=== PATIENT | female | born 1995 | race Caucasian/White ===

== ENCOUNTER → 2024-07-07 | Outpatient (CLI) | payer OTHER, SELFPAY ==
--- NOTE | 2024-07-07 13:52 | XR_ITS ---
Examination: Lumbar spine, 5 views Technique: Lumbar spine AP, lateral, coned lateral lower lumbar spine, bilateral obliques 5 views Exam date and time: July 07, 2024 1355 hours INDICATIONS: Patient fell 5 days ago with injury to lower back, lower back pain. FINDINGS: Satisfactory alignment lumbar vertebral bodies No lumbar fracture No significant lumbar disc narrowing No spondylolisthesis IMPRESSION: No lumbar fracture
== END | disposition home or self-care (01) ==
LOC: CDIM 13:28
PROVIDERS: PCP Family Medicine; Referring Provider Physician Assistant; Visit Provider Physician Assistant
DX: S39.012A Strain of muscle, fascia and tendon of lower back, initial encounter (principal); W19.XXXA Unspecified fall, initial encounter
CPT/HCPCS: 72110

== ENCOUNTER 2024-11-18 08:26 | Emergency (ER) | payer MEDICAID, SELFPAY ==
[2024-11-18 08:26] VITALS: BMI 25.2
[2024-11-18 08:45] VITALS: BP 104/67; PULSE 62; RESP 16; TEMP 36.6; O2SAT 99
--- NOTE | 2024-11-18 08:51 | XR_ITS ---
Examination: Wrist, left 3 views Technique: Wrist AP, oblique, lateral 3 views Date and time of exam: November 18, 2024 0905 hrs. Indications: Patient fell 2 months ago with injury to the wrist, wrist pain. Findings: No acute fracture No dislocation Impression: No acute fracture
--- NOTE | 2024-11-18 08:51 | PD.EDRME ---
Rapid Medical Screening Exam RME Arrival date/time: 11/18/24 08:26 29-year-old female with medical history significant for hysterectomy as well as cholecystectomy presents stating that she is currently on antibiotics for UTI reports generalized fatigue reports an episode of vomiting today and she reports there was blood streaks in her vomit. Chief Complaint: Nausea/Vomiting/Diarrhea Time Seen by Provider: 11/18/24 08:43 Vital signs: Vital Signs Temperature 97.8 F 11/18/24 08:45 Pulse Rate 62 11/18/24 08:45 Respiratory Rate 16 11/18/24 08:45 Blood Pressure 104/67 11/18/24 08:45 Pulse Oximetry (%) 99 11/18/24 08:45 Oxygen Delivery Method Room Air 11/18/24 08:45
[2024-11-18 09:09] LABS: Collection Type, Urine Clean Catch
[2024-11-18 09:20] VITALS: BP 101/61; PULSE 61; RESP 18; TEMP 36.7; O2SAT 97
[2024-11-18 09:21] LABS: Bacteria,Urine Rare; Bilirubin,Urine Negative (Negative); Blood,Urine Negative (Negative); Color,Urine Yellow (Lt Yel-Yel); Culture Indicated,Urine Not Indicated; Glucose, Urine Negative (Negative); Ketones,Urine Negative (Negative); Leukocyte Esterase,Urine Negative (Negative); Nitrite,Urine Negative (Negative); PH,Urine 6.5 (5.0-7.0); Protein,Urine Trace (Neg - Trace); RBC,Urine 1 /hpf (0-3); Specific Gravity,Urine 1.025 (1.001-1.035); Squamous Epithelial Cell,Urine 11 /hpf (0-5); Urobilinogen,Urine Negative mg/dL (0.0-1.0); WBC,Urine 3 /hpf (0-5)
[2024-11-18 09:22] LABS: Clarity,Urine Hazy (Clear/Hazy)
--- NOTE | 2024-11-18 09:36 | PD.EDADULT ---
ED General RME/HPI General Chief complaint: Nausea/Vomiting/Diarrhea Stated complaint: VOMITING WITH BLOOD AFTER TAKING CIPRO Time Seen by Provider: 11/18/24 08:43 Arrival date/time: 11/18/24 08:26 RME / HPI RME / HPI narrative: 11/18/24 08:26 29-year-old female with medical history significant for hysterectomy as well as cholecystectomy presents stating that she is currently on antibiotics for UTI reports generalized fatigue reports an episode of vomiting today and she reports there was blood streaks in her vomit. DR. BARRETO MAIN ED EVALUATION: 29 year old female presents to the Emergency Department with complaints of a headache, nausea, and x3 episodes of vomiting with streaks of blood this morning. She states she does not have abdominal pain but is is tender on palpation. Associated symptoms include fatigue. Denies any diarrhea or constipation. No cough, fevers, or chills. She recently was diagnosed with an UTI for dysuria, has 2 more days of cipro. Related Data Previous Rx's ?Medication ?Instructions ?Recorded hydrocodone 5 mg-acetaminophen 325 1 tab PO Q6H PRN pain #20 tabs 07/16/ mg tablet ibuprofen 600 mg tablet 600 mg PO Q6H #30 tabs 05/11/24 Allergies Allergy/AdvReac Type Severity Reaction Status Date / Time No Known Allergies Allergy Verified 11/18/24 08:28 Review of Systems Review of Systems Systems Reviewed: All systems reviewed, normal except as documented Past Medical History Past Medical History NEUROLOGIC: Positive Migraine GASTROINTESTINAL: Positive Gall Bladder Disease and Hemorrhoids REPRODUCTIVE: Positive Previous Pregnancies MUSCULOSKELETAL: Positive Musculoskeletal Disorders ENT: Positive Ear Infection OTHER HISTORY: Positive Hospitalization and Chicken Pox Family History FAMILY HISTORY: Positive Family Cardiac Disorders and Family Surgery Surgical History SURGICAL: Positive Hysterectomy, Tubal Ligation and Section Social History SMOKING STATUS: Never smoker SECOND HAND EXPOSURE: Yes SUBSTANCE USE: does not use ALCOHOL: Never ED Exam Narrative Physical exam: GENERAL APPEARANCE: alert and oriented x 4, well-developed, well-nourished, no acute distress VITALS: All vitals were reviewed and the pulse ox is 97% on room air, which is normal according to my interpretation. HEENT: Normocephalic, atraumatic; pupils equal, round, reactive to light; EOMI; mucous membranes pink, moist; oropharynx clear NECK: Supple LUNGS: CTABL; no wheezes, no rales, no rhonchi HEART: Regular rate, regular rhythm; normal S1, S2; no murmurs ABDOMEN: non distended; normal BS; tender to palpation of the right lower quadrant area, no rebound; no masses, no organomegaly, no hernia BACK: no CVA tenderness EXTREMITIES: atraumatic; no edema NEUROLOGIC: awake; alert and oriented x4; cranial nerves II-XII grossly intact; no focal sensory or motor deficits PSYCHIATRIC: appropriate mood and affect SKIN: warm, dry, normal color; no rashes Course Quality Measures none Orders Category Date Time Status CT Screening NOW Care 11/18/24 10:[address] abdomen pelvis w con Stat Exams 11/18/24 10:07 Completed XR wrist comp LT min 3V Stat Exams 11/18/24 08:51 Completed CBC Stat Lab 11/18/24 09:30 Completed Comprehensive Metabolic Panel Stat Lab 11/18/24 09:30 Completed Lipase Stat Lab 11/18/24 09:30 Completed UA, C/S IF [Urinalysis, C/S if Indicated] Stat Lab 11/18/24 09:01 Completed Ondansetron Inj [Zofran Inj] Med 11/18/24 12:42 Discontinued 4 mg IV X1 ONE Vital Signs Vital signs: Vital Signs Temperature 97.8 F 11/18/24 08:45 Pulse Rate 62 11/18/24 08:45 Respiratory Rate 16 11/18/24 08:45 Blood Pressure 104/67 11/18/24 08:45 Pulse Oximetry (%) 99 11/18/24 08:45 Oxygen Delivery Method Room Air 11/18/24 08:45 MDM Patient data External records reviewed:: [facility] previous records (Reviewed last ED visit dated 05/11/24, discharged with the following: Pelvic pain) Clinical information provided by:: patient Social determinants that could affect healthcare access:: none Patient has the following chronic illnesses:: PAST MEDICAL HISTORY: Asthma, hemorrhoids, cervical stenosis, pyelonephritis, and sinusitis. PAST SURGICAL HISTORY: Subtotal abdominal hysterectomy in August 2021, delivery in 2018, cholecystectomy and laparoscopic bilateral tubal ligation in 2020, hysteroscopy in November 2020 and April 2021. How is presenting disease/condition affected by chronic disease/condition?: exacerbated by Evaluation data The following diagnostics were reviewed and interpreted by me:: lab results and radiology exam(s) Lab and/or radiology exams considered but not ordered:: none Interpretation Summary: Procedure(s): XR wrist comp LT min 3V Accession Number(s): [id number] cc: Wilton Haines; Jose (MARCUS)Aroldo NP; Rolando Bustos MD~ Examination: Wrist, left 3 views Technique: Wrist AP, oblique, lateral 3 views Date and time of exam: November 18, 2024 0905 hrs. Indications: Patient fell 2 months ago with injury to the wrist, wrist pain. Findings: No acute fracture No dislocation Impression: No acute fracture Dictated By: Rolando Bustos MD Procedure(s): CT abdomen pelvis w con Accession Number(s): [id number] cc: Wilton Haines; Rolando Bustos MD; Ilda Barreto MD~ Examination: CT abdomen with intravenous contrast CT pelvis with intravenous contrast 2-D coronal reconstructions 2-D sagittal reconstructions Date and time of exam:November 18, 2024 1133 hrs. Comparison September 22, 2023 Indications: Right lower abdominal pain and vomiting blood today. CTDI: vol (mGy) 7.27 DLP: (mGycm) 116 Technique: Multiple axial sections of the abdomen and pelvis have been obtained. 64 slice high-resolution scanner used. 3 mm axial sections have been obtained, post intravenous injection 60 cc [id number] 2-D sagittal, coronal reconstructions obtained. Low dose protocols were performed. One or more of the following dose reduction techniques were used; automated exposure control, adjustment of the mA and/or KV according to patient size, use of iterative reconstruction technique. Findings: Diffuse thickening of the gastric mucosa No focal liver or splenic lesions Absent gallbladder No pancreatic or adrenal mass No renal or ureteral calculi, no hydronephrosis Aorta normal size Normal appendix No bowel obstruction Colonic diverticulosis, no diverticulitis Retroverted uterus Bladder intact Suspicious for 18 mm posterior right pelvic cyst Impression: Gastritis pattern No renal or ureteral calculi, no hydronephrosis No CT findings of appendicitis bowel obstruction or diverticulitis Recommend pelvic sonography to exclude small right pelvic cyst Dictated By: Rolando Bustos MD Medications Medications considered but not ordered:: none Medication administrations:: Medication Administration History Discontinued Medications Ondansetron HCl (Ondansetron Inj 2 Mg/Ml Inj 2 Ml) 4 mg IV X1 ONE; Protocol Stop: 11/18/24 12:43 Last Admin: 11/18/24 13:37 Dose: Not Given Documented By: DINESH Non-Admin Reason: Cancelled by Provider see above if any Consultations Consultation(s) initiated? (list below): No Diagnosis Differential Diagnosis ED Complaint MDM: UTI, sepsis, dehydration Most likely diagnosis given after review of the tests above:: Vomiting Abdominal pain Admission Indicated Admission indicated?: not indicated Explain why admission is indicated or not indicated:: Patient has no emergent abnormalities on his studies and can be managed on an outpatient basis. Admission Request Was there a request for admission?: No Disposition Plan Disposition Plan: Discharge Discharge Attestation Discharge Attestation: The patient and all family members were given an opportunity to ask questions and understood the discharge instructions. Discharge instructions specifically effects, indications for sooner follow up or return to the emergency department, and the expected course of current diagnosis. Patient condition: Stable Medical Decision Making MDM Narrative MDM Narrative: I, Georgiana Benitez, jenny scribing for and in the presence of Dr. Barreto. Differential Diagnosis Differential Diagnosis: UTI, sepsis, dehydration Lab Data 11/18/24 09:30 11/18/24 09:30 Labs: Lab Results 11/18/24 11/18/24 Range/Units 09:01 09:30 WBC 9.9 (3.6-11.0) Thou/mm3 RBC 4.31 (4.00-5.20) Miln/mm3 Hgb 12.3 (12.0-16.0) g/dL Hct 38.5 (36.0-46.0) % MCV 89 (80-100) fL MCH 28.5 (25.0-35.0) pg MCHC 31.9 (31.0-37.0) g/dl RDW Std Deviation 41.6 (36.4-46.3) fL Plt Count 250 (140-440) Thou/mm3 Neut % (Auto) 78 (37-80) % Lymph % (Auto) 15 (10-50) % [place] % (Auto) 5 (0-12) % Eos % (Auto) 1 (0-10) % Baso % (Auto) 1 (0-2.5) % Neut # (Auto) 7.7 (1.8-7.7) Thou/mm3 Lymph # (Auto) 1.5 (1.0-4.8) Thou/mm3 [place] # (Auto) 0.5 (0.0-0.8) Thou/mm3 Eos # (Auto) 0.1 (0.0-0.5) Thou/mm3 Baso # (Auto) 0.1 (0.0-0.2) Thou/mm3 Immature Gran # (Auto) 0.02 H (0.00-0.00) Thou/mm3 Absolute Nucleated RBC 0.00 (0.00-0.00) Thou/mm3 Immature Gran % 0 (0-0) % Nucleated RBC % 0 (0) /100 WBC Sodium 144 (136-145) mMol/L Potassium 3.9 (3.4-5.1) mMol/L Chloride 109 H (98-107) mMol/L Carbon Dioxide 29.2 (20.0-31.0) mMol/L Anion Gap 6 L (7-16) BUN 11 (9-23) mg/dL Creatinine 0.8 (0.6-1.3) mg/dL Estim Creat Clear Calc 98.0 (>60) mL/min eGFR > 60 (60 - ) See Note BUN/Creatinine Ratio 14 (12-20) Ratio Glucose 92 (74-106) mg/dL Calculated Osmolality 286 (275-295) Calcium 9.1 (8.3-10.6) mg/dL Corrected Calcium 9.1 (8.5-10.1) mg/dL Total Bilirubin 0.6 (0.3-1.2) mg/dL AST 14 (0-34) U/L ALT 9 L (10-49) U/L Alkaline Phosphatase 49 (46-116) U/L Total Protein 6.7 (5.7-8.2) gm/dL Albumin 4.2 (3.5-5.0) gm/dL Globulin 2.5 (2.3-3.5) gm/dL Albumin/Globulin Ratio 1.7 (1.2-2.2) Lipase 24 (12-53) U/L Ur Collection Type Clean Catch Urine Color Yellow (Lt Yel-Yel) Urine Clarity Hazy (Clear/Hazy) Urine pH 6.5 (5.0-7.0) Ur Specific [place] 1.025 (1.001-1.035) Urine Protein Trace (Neg - Trace) Urine Glucose (UA) Negative (Negative) Urine Ketones Negative (Negative) Urine Blood Negative (Negative) Urine Nitrite Negative (Negative) Urine Bilirubin Negative (Negative) Urine Urobilinogen (Auto) Negative (0.0-1.0) mg/dL Ur Leukocyte Esterase Negative (Negative) Urine RBC 1 (0-3) /hpf Urine WBC 3 (0-5) /hpf Ur Squamous Epith Cells 11 H (0-5) /hpf Urine Bacteria Rare (None) Ur Culture Indicated? Not Indicated Discharge Plan Plan Patient Disposition: HOME (Self Care) Prescriptions/Referrals Prescriptions/Med Rec: No Action hydrocodone-acetaminophen 5-325 mg tablet 1 tab PO Q6H MDD 4 PRN (Reason: pain) Qty: 20 0RF ibuprofen 600 mg tablet 600 mg PO Q6H Qty: 30 0RF Referrals: Wilton Haines FNP [Primary Care Provider] - In 1 week Problem List Clinical Impression: Vomiting, Abdominal pain Patient/Caregiver Discharge Instructions Education Materials: ED Abdominal Pain Unkn Cause Fem Print Language: Syriac Stand Alone Forms: Shana Award Info., Patient Portal Info Letter
[2024-11-18 10:00] LABS: Basophils # (Auto) 0.1 Thou/mm3 (0.0-0.2); Basophils % (Auto) 1 % (0-2.5); Eosinophils # (Auto) 0.1 Thou/mm3 (0.0-0.5); Eosinophils % (Auto) 1 % (0-10); Hematocrit 38.5 % (36.0-46.0); Hemoglobin 12.3 g/dL (12.0-16.0); Immature Granulocytes % (Auto) 0 % (0-0); Immature Granulocytes Auto 0.02 Thou/mm3 (0.00-0.00); Lymphocytes # (Auto) 1.5 Thou/mm3 (1.0-4.8); Lymphocytes % (Auto) 15 % (10-50); Mean Corpuscular HGB Conc 31.9 g/dl (31.0-37.0); Mean Corpuscular Hemoglobin 28.5 pg (25.0-35.0); Mean Corpuscular Volume 89 fL (80-100); Monocytes # (Auto) 0.5 Thou/mm3 (0.0-0.8); Monocytes % (Auto) 5 % (0-12); Neutrophils # (Auto) 7.7 Thou/mm3 (1.8-7.7); Neutrophils % (Auto) 78 % (37-80); Nucleated Red Blood Cell % 0 /100 WBC (0); Platelet Count 250 Thou/mm3 (140-440); RDW Standard Deviation 41.6 fL (36.4-46.3); Red Blood Count 4.31 Miln/mm3 (4.00-5.20); White Blood Count 9.9 Thou/mm3 (3.6-11.0)
--- NOTE | 2024-11-18 10:07 | XR_ITS ---
Examination: CT abdomen with intravenous contrast CT pelvis with intravenous contrast 2-D coronal reconstructions 2-D sagittal reconstructions Date and time of exam:November 18, 2024 1133 hrs. Comparison September 22, 2023 Indications: Right lower abdominal pain and vomiting blood today. CTDI: vol (mGy) 7.27 DLP: (mGycm) 116 Technique: Multiple axial sections of the abdomen and pelvis have been obtained. 64 slice high-resolution scanner used. 3 mm axial sections have been obtained, post intravenous injection 60 cc [id number] 2-D sagittal, coronal reconstructions obtained. Low dose protocols were performed. One or more of the following dose reduction techniques were used; automated exposure control, adjustment of the mA and/or KV according to patient size, use of iterative reconstruction technique. Findings: Diffuse thickening of the gastric mucosa No focal liver or splenic lesions Absent gallbladder No pancreatic or adrenal mass No renal or ureteral calculi, no hydronephrosis Aorta normal size Normal appendix No bowel obstruction Colonic diverticulosis, no diverticulitis Retroverted uterus Bladder intact Suspicious for 18 mm posterior right pelvic cyst Impression: Gastritis pattern No renal or ureteral calculi, no hydronephrosis No CT findings of appendicitis bowel obstruction or diverticulitis Recommend pelvic sonography to exclude small right pelvic cyst
[2024-11-18 10:19] LABS: Alanine Aminotransferase 9 U/L (10-49); Albumin, Serum 4.2 gm/dL (3.5-5.0); Albumin/Globulin Ratio 1.7 (1.2-2.2); Alkaline Phosphatase 49 U/L (46-116); Anion Gap 6 (7-16); Aspartate Amino Transferase 14 U/L (0-34); BUN/Creatinine Ratio 14 Ratio (12-20); Bilirubin,Total 0.6 mg/dL (0.3-1.2); Blood Urea Nitrogen 11 mg/dL (9-23); Calcium 9.1 mg/dL (8.3-10.6); Calcium (Corrected) 9.1 mg/dL (8.5-10.1); Carbon Dioxide 29.2 mMol/L (20.0-31.0); Chloride 109 mMol/L (98-107); Creatinine (Component) 0.8 mg/dL (0.6-1.3); Globulin 2.5 gm/dL (2.3-3.5); Glucose 92 mg/dL (74-106); Lipase 24 U/L (12-53); Osmolality,Calculated 286 (275-295); Potassium 3.9 mMol/L (3.4-5.1); Sodium 144 mMol/L (136-145); Total Protein 6.7 gm/dL (5.7-8.2); eGFR > 60 See Note
[2024-11-18 11:54] VITALS: BP 94/49; PULSE 59; RESP 17; TEMP 36.7; O2SAT 100
--- NOTE | 2024-11-18 12:48 | PC.NURSE ---
Patient to er from [facility] and taken to room 19, with c/o dizziness x 1 wk, worse today, patient c/o right ear feels plugged patient denies pain, no c/o n/v/d, no sob, skin warm dry and pink, chart up to be seen by er provider. at bedside, call light within reach.
--- NOTE | 2024-11-18 13:20 | PC.NURSE ---
Patient given water for fluid challenge.
[2024-11-18 13:37] VITALS: BP 108/67; PULSE 84; RESP 16; O2SAT 99
== END 2024-11-18 13:41 | disposition home or self-care (01) ==
PROVIDERS: Nurse Practitioner Primary Care; Emergency Provider Emergency Medicine; PCP Nurse Practitioner Family
DX: K92.0 Hematemesis (principal); R10.31 Right lower quadrant pain; N39.0 Urinary tract infection, site not specified; J45.909 Unspecified asthma, uncomplicated; Z87.19 Personal history of other diseases of the digestive system; Z90.49 Acquired absence of other specified parts of digestive tract; Z90.710 Acquired absence of both cervix and uterus; Z98.51 Tubal ligation status
CPT/HCPCS: 36415; 73110; 74177; 80053; 81001; 83690; 85025; 99285; A4649; Q9967